=== PATIENT | male | born 1975 | race Caucasian/White ===

== ENCOUNTER 2017-05-17 17:41 | Emergency (ER) | payer MEDICAID ==
[~2017-05-17] VITALS: Ht 177.8 cm; Wt 84.8 kg
[2017-05-17 17:47] VITALS: Ht 177.8 cm; Wt 84.8 kg
[2017-05-17 19:48] VITALS: BP 125/78
== END 2017-05-17 19:48 | disposition home or self-care (01) ==
LOC: ED 17:41
DX: M22.2X1 Patellofemoral disorders, right knee (principal)